=== PATIENT | female | born 1965 | race Asian ===

== ENCOUNTER 2018-09-17 08:23 | Day surgery (SDC) | payer OTHER ==
[~2018-09-17] VITALS: Ht 160 cm; Wt 53.9 kg
[2018-09-17 09:21] VITALS: Ht 160 cm; Wt 53.9 kg
[2018-09-17] MEDS ORDERED: CHOLESTEROL MED (09:29)
[2018-09-17] MEDS ORDERED: FENTAnyl 50 MCG/ML VIAL ONE (10:35)
[2018-09-17] MEDS ORDERED: MIDAZOLAM 1 MG/ML 2 ML INJ ONE ×2 (10:35)
[2018-09-17 10:41] VITALS: BP 109/61; PULSE 58; RESP 24
[2018-09-17 10:46] VITALS: BP 131/80; PULSE 78; RESP 18
== END 2018-09-17 14:48 | disposition home or self-care (01) ==
LOC: GIL 08:23
PROVIDERS: ATTEND Internal Medicine Gastroenterology
DX: Z12.11 Encounter for screening for malignant neoplasm of colon (principal); K62.1 Rectal polyp
CPT/HCPCS: 45380; 88305; J2250; J3010; Z7610